=== PATIENT | male | born 1965 | race Caucasian/White ===

== ENCOUNTER → 2017-07-06 16:35 | Outpatient (CLI) | payer SELFPAY ==
--- NOTE | 2017-07-06 16:49 | DI.RAD.S_ITS ---
PROCEDURE: XR FINGER RT MIN 2V INDICATIONS: pain TECHNIQUE: AP hand, 2 views of the second finger(s) acquired. COMPARISON: None. FINDINGS: Bones: No fractures or dislocations. No suspicious bony lesions. 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 No fracture or foreign body found. Soft tissues: No suspicious soft tissue calcifications. IMPRESSION: Minimal osteoarthritis, a definite source of pain is not found otherwise. Dictated by: Boone Jean M.D. on 07/06/2017 at 20:50 Approved by: Boone Jean M.D. on 07/06/2017 at 20:51
--- NOTE | 2017-07-06 16:49 | DI.RAD.S_ITS ---
PROCEDURE: XR FINGER LT MIN 2V INDICATIONS: pain TECHNIQUE: AP hand, 2 views of the first finger(s) acquired. COMPARISON: None. FINDINGS: Bones: No fractures or dislocations. No suspicious bony lesions. Soft tissues: No suspicious soft tissue calcifications. IMPRESSION: No fracture or traumatic subluxation found. Dictated by: Boone Jean M.D. on 07/06/2017 at 20:51 Approved by: Boone Jean M.D. on 07/06/2017 at 20:52
--- NOTE | 2017-07-06 16:49 | DI.RAD.S_ITS ---
PROCEDURE: XR WRIST LT MIN 3V INDICATIONS: pain TECHNIQUE: 4 views of the wrist were acquired. COMPARISON: None. FINDINGS: Bones: No fractures or dislocations. No suspicious bony lesions. Scaphoid view: No trauma. Soft tissues: No suspicious soft tissue calcifications. IMPRESSION: Source of pain is not seen. Dictated by: Boone Jean M.D. on 07/06/2017 at 20:52 Approved by: Boone Jean M.D. on 07/06/2017 at 20:52
== END ==
PROVIDERS: PCP Physician Assistant; Visit Provider Physician Assistant
DX: M19.041 Primary osteoarthritis, right hand (principal); M79.645 Pain in left finger(s); M25.532 Pain in left wrist
CPT/HCPCS: 73110; 73140